=== PATIENT | male | born 1955 ===

== ENCOUNTER 2016-07-28 18:28 | Emergency (ER) | payer BC ==
[2016-07-28] MEDS ORDERED: Tetan/Diph/Pertus SYR(Tdap)* 0.5 ML SYR(BOOSTRIX) use SYR IM ONE (19:27)
[2016-07-28] MEDS ORDERED: Lidocaine 1% MPF* 2 ML VIAL INJ ONE (19:39)
[2016-07-28] MEDS ORDERED: Cephalexin CAP* 500 MG PO ONE (20:37)
--- NOTE | 2016-07-28 20:43 | UC ---
ISong,Jose, scribed for Henrietta Claire MD on 07/28/16 at 1945 . Skin Complaint HPI - HPI Summary HPI Summary: This 61 y/o male presents to [facility] for left #1 digit laceration since this afternoon. Left thumb was lacerated by blower fan around 1600 PM. Pain is rated as 5/10. Pt denies any numbness or weakness. Pt denies any PMHx or being on any home medications. Bleeding is controlled at time of initial evaluation. Pt is current heavy smoker and occasional non-drinker. Pt is not sure if he is UTD with tetanus. Primary care involves Dr. Augustine. Allergy information is reviewed , and pt reports that he may have been allergic to PCN as a child. Plan of care involving outpatient f/u with hand surgeon is discussed with pt, and he is agreeable at this time. Pt is instructed to keep his repaired laceration dry and treat with abx ointment. - History of Current Complaint Chief Complaint: UCLaceration Time Seen by Provider: 07/28/16 19:20 Stated Complaint: FINGER LAC Hx Obtained From: Patient, Medical Records Onset/Duration: Sudden Onset, Lasting Hours, Still Present Skin Exposure Onset/Duration: Hours Ago Timing: Constant Pain Intensity: 5 Pain Scale Used: 0-10 Numeric Location: Hand (Left) - left #1 digit Aggravating: Nothing Alleviating: Nothing Associated Signs & Symptoms: Positive: Negative - Allergy/Home Medications Allergies/Adverse Reactions: Allergies Allergy/AdvReac Type Severity Reaction Status Date / Time No Known Allergies Allergy Verified 07/28/16 18:47 Review of Systems Constitutional: Negative Skin: Other - Laceration at LUE #1 digit Eyes: Negative ENT: Negative Respiratory: Negative Cardiovascular: Negative Gastrointestinal: Negative Genitourinary: Negative Motor: Negative Neurovascular: Negative Musculoskeletal: Negative Neurological: Negative Psychological: Negative All Other Systems Reviewed And Are Negative: Yes PMH/Surg Hx/FS Hx/Imm Hx Endocrine History Of: Denies: Diabetes, Thyroid Disease Cardiovascular History Of: Denies: Cardiac Disorders, Hypertension Respiratory History Of: Denies: COPD, Asthma GI/ History Of: Denies: Ulcer - Surgical History Surgical History: Yes Surgery Procedure, Year, and Place: ta - Family History Known Family History: Negative: Other - Mother of CVA at age of 88. Negative colon CA or IBS per EMR - Social History Occupation: Employed Full-time - Works at [employer] Lives: With Family Alcohol Use: None Substance Use Type: None Smoking Status (MU): Heavy Every Day Tobacco Smoker - Immunization History Most Recent Tetanus Shot: unk Physical Exam Triage Information Reviewed: Yes Appearance: Well-Appearing, Pain Distress - moderate. Vital Signs: Initial Vital Signs Temp 97.7 F 07/28/16 18:42 Pulse 84 07/28/16 18:42 Resp 16 07/28/16 18:42 BP 160/88 07/28/16 18:42 Pulse Ox 99 07/28/16 18:42 Vital Signs Reviewed: Yes Respiratory: Positive: Lungs clear, Normal breath sounds Cardiovascular: Positive: RRR, No Murmur Skin Exam: Other - left hand first digit with laceration of nail bed laterally, with avulsion of flap of nail about 6 mm in length Laceration Repair - Laceration Repair 1 Description: Irregular - Timeout at 1951 PM Laceration Size After Repair: Length (cm) - 1.0 cm Modified For Repair: Yes - Excision of a portion of nail #1 Type Injection: Digital - digital block obtained. Anesthesia Used: 1.0% Lido Cleansing Completed Via Routine Prep: Yes Irrigation With Pressure Irrigation Device: Yes Closure Material: Sutures - x4 Closure Method: Single Layer Suture Of: Skin Suture Type: Other - 5-0 surgipro proximal nail removed after digital block. Course/Dx - Course Course Of Treatment: repair of lacteration, partial removal of proximal nail - Diagnoses Provider Diagnoses: laceration, partial avulsion of first nail left hand Discharge - Discharge Plan Condition: Stable Disposition: HOME Prescriptions: Cephalexin CAP* [Keflex 500 CAP*] 500 mg PO QID #20 cap Referrals: Iftikhar Augustine MD [Primary Care Provider] - Remberto Leavitt MD [Medical Doctor] - Additional Instructions: You will take cephalexin to prevent infection given the amount of tissue disruption caused by the injury. Call Dr. Leavitt office tomorrow to schedule a follow up visit in 2 days. Images Hands: 1 - laceration of lateral nail extending into the nail bed, with flap with 6 mm sides The documentation as recorded by the scribe, Jose Zuleta accurately reflects the service I personally performed and the decisions made by me, Henrietta Claire MD.
== END 2016-07-28 20:58 | disposition home or self-care (01) ==
LOC: UCEAST 18:28
DX: S61.112A Laceration without foreign body of left thumb with damage to nail, initial encounter (principal); W45.8XXA Other foreign body or object entering through skin, initial encounter; Y93.89 Activity, other specified; Y92.9 Unspecified place or not applicable; Z23 Encounter for immunization; F17.210 Nicotine dependence, cigarettes, uncomplicated
CPT/HCPCS: 12031; 90471; 90715; 99201; G0463